=== PATIENT | female | born 1950 | race Caucasian/White ===

== ENCOUNTER 2016-09-25 08:17 | Observation (INO) | payer MEDICARE, OTHER ==
[2016-09-25] VITALS (9 sets, daily range): BP systolic 99–145; BP diastolic 56–76; PULSE 60–83; RESP 16–17; O2SAT 98–100
[~2016-09-25] VITALS: Ht 167.6 cm; Wt 90.9 kg
--- NOTE | 2016-09-25 08:35 | ED.REPORT ---
HPI-General Illness Date of Service Sep 25, 2016 ED Provider: Dr. Iniguez Pt is a 66 year old female with a hx of chronic neck pain, asthma, and HTN presenting to the ED via EMS after a syncopal episode lasting 10 seconds. She remembers feeling "clammy", lightheaded, and diaphoretic. Denies chest pressure or pain, fever, wheezing, nausea, vomiting, numbness, headache, diarrhea, incontinence, slurred speech, speech changes, vision changes, or focal weakness. She denies noting any inciting incidents that would have caused the episode, did not hit her head. She says that she was around friends and family and that she came back to after about 10 seconds of being slumped over. She did not have any associated tongue biting or clonic movements. Has not had a episode like this in the past. No other complaints at this time. Nursing Notes Stated Complaint: SYNCOPE Chief Complaint: General Complaint Nursing Notes Reviewed: Yes Allergies: Coded Allergies: codeine (Verified Allergy, Severe, Anaphylaxis, 09/25/16) Scheduled Cephalexin (Cephalexin) 500 Mg Capsule 1 CAPSULE PO QID Fluticasone/Salmeterol (Advair 500-50 Diskus) 1 Each Disk.w.dev 1 PUFF INHALATION DAILY Lisinopril (Lisinopril) 10 Mg Tablet 1 TAB PO BID Tramadol (Tramadol) 50 Mg Tablet 1 TAB PO QID Scheduled PRN ([calms forte]) 2 TAB PO HS PRN PRN Insomnia ([nerve tonic]) 1 PO BID PRN PRN For Anxiety or Agitation Acetaminophen (Tylenol Arthritis) 650 Mg Tablet.er 650 MG PO Q6 PRN PRN For Pain Albuterol HFA (Proair HFA) 8.5 Gm Hfa.aer.ad 2 PUFFS INHALATION Q4H PRN PRN For Shortness of Breath Ibuprofen (Ibuprofen) 200 Mg Capsule 200 MG PO QID PRN PRN For Pain General Time Seen by MD: 08:35 Chief Complaint Other (Syncope) Hx Obtained From: Patient, EMS Arrived By: Ambulance Sudden in Onset?: Yes Onset Occurred: Just prior to arrival Symptom Duration: 1 - 15 minutes Location: : Abdomen: Neck Quality: Painful Severity: Current: No pain currently Severity: Maximum: Moderate Recent Healthcare: No recent doctor visit, No recent hospitalization Similar Sx Previous: No Past Medical History Past Medical History Chronic neck pain HTN Asthma Past Surgical History Reports: Cholecystectomy Family History Father and mother both had HTN. Father had heart attack around 60 Smoking History Never Smoker Social History Alcohol Use: Denies alcohol use Drug Use: Denies drug use Ambulatory Status Independent Review of Systems Full Review of Systems Constitutional: Denies: Fever Eyes: Denies: Blurred bilateral Ears / Nose / Throat: Denies: Earache bilateral Respiratory: Denies: Shortness of breath, Wheezing Cardiovascular: Reports: Syncope, Denies: Chest pain GI: Denies: Abdominal pain, Diarrhea, Nausea, Vomiting Female: Denies: Incontinence Musculoskeletal: Denies: Back pain Hematologic: Denies Bruising Endocrine: Denies: Polyuria Skin: Reports Diaphoresis Neurologic: Reports: Lightheaded, Syncope, Denies: Focal weakness, Headache, Numbness, Slurred speech, Unable to speak, Vision change Complete sys rev & neg: except as marked. Physical Exam Nursing note and vitals reviewed. Constitutional: Well-developed, well-nourished. Not diaphoretic. Head: Normocephalic and atraumatic. Mouth/Throat: Oropharynx is clear and moist. No oropharyngeal exudate. Eyes: EOM are normal. Pupils are equal, round, and reactive to light. Neck: Supple, no tracheal deviation. Cardiovascular: Normal rate, regular rhythm. Equal and intact distal pulses throughout. Pulmonary/Chest: Effort normal and breath sounds normal. No respiratory distress. Abdominal: Soft. No distension. There is no tenderness, rebound, or guarding. Bowel sounds present. Musculoskeletal: Range of motion grossly intact, moving all extremities. No edema or tenderness appreciated. Mild paraspinal cervical tenderness to palpation. No bony tenderness. Neurological: AOx3. Grossly nonfocal exam. Strength and sensation intact and equal to bilateral upper and lower extremities. Normal finger to nose testing. Skin: Warm and dry, no rashes or pallor appreciated. Psychiatric: Appropriate mood and affect. Behavior appears normal. Vital Signs Vital Signs Date Time Temp Pulse Resp B/P Pulse Ox O2 Delivery O2 Flow Rate FiO2 09/25/16 10:23 83 16 111/64 98 Room Air 09/25/16 08:28 36.0 61 17 100/56 100 Room Air Initial VS: Reviewed Interpretation & Diagnostics Lab Results Interpretation Result Diagram: 09/25/16 0830 09/25/16 0830 Test 09/25/16 08:30 White Blood Count 7.2th/mm3 (3.8-10.1) Red Blood Count 3.69mil/mm3 (3.90-5.20) Hemoglobin 11.9g/dL (12.0-15.6) Hematocrit 35.0% (35.0-46.0) Mean Corpuscular Volume 94.9fL (81-100) Mean Corpuscular Hemoglobin 32.2pg (27.0-35.0) Mean Corpuscular Hemoglobin Concent 34.0% (32.0-37.0) Red Cell Distribution Width 12.7% (12.3-15.4) Platelet Count 316bil/L (150-400) Neutrophils (%) (Auto) 51.9% (40-74) Lymphocytes (%) (Auto) 32.6% (14-46) Monocytes (%) (Auto) 12.8% (4-12) Eosinophils (%) (Auto) 2.2% (0-5) Basophils (%) (Auto) 0.4% (0-3) Sodium Level 134mEq/L (134-144) Potassium Level 4.2mEq/L (3.5-5.2) Chloride Level 98mEq/L (97-108) Carbon Dioxide Level 21mmol/L (18-29) Blood Urea Nitrogen 15mg/dL (8-27) Creatinine 0.85mg/dL (0.57-1.00) Estimat Glomerular Filtration Rate 95mL/min (>59) Glucose Level 105mg/dL (60-99) Calcium Level 9.3mg/dL (8.5-10.1) Magnesium Level 2.0mg/dL (1.6-2.6) Total Bilirubin 0.7mg/dL (0.0-1.2) Aspartate Amino Transf (AST/SGOT) 48U/L (0-50) Alanine Aminotransferase (ALT/SGPT) 42U/L (0-32) Alkaline Phosphatase 171U/L (25-165) Total Protein 7.2g/dL (6.4-8.4) Albumin 3.5g/dL (3.4-5.0) ECG Interpretation ECG Interpretation: ST elevation is limited to IA and AVL with IA depression on mild ST elevation in 1,2,AVL small amount of IA depression in v2. No other significant ST changes appreciated. Rate of 59. Time: 08:29 Interpreted by: ED physician ECG Interpretation: No significant change from previous. Time: 11:11 Interpreted by: ED physician Normal ECG Interpretation: Normal rate (67) X-Ray Chest Interpretation Chest Xray Interpretation: IMPRESSION: Normal for age. Dictated by: Elkin Lewis M.D. on 09/25/2016 at 9:21 View: Portable, 1 view Interpretation / Wet Read by: Interpret - Radiologist CT Head Interpretation IMPRESSION: Normal for age, source of syncope is not seen. No trauma found. Dictated by: Elkin Lewis M.D. on 09/25/2016 at 10:01 Study: Head CT no contrast Interpretation / Wet Read by: Interpret - Radiologist CT C-Spine Interpretation IMPRESSION: Moderately severe mid and lower cervical degenerative disc disease, but without acute trauma found. Depending on the clinical status followup by MR scanning for more accurate assessment of degree of spinal and foraminal stenosis may be warranted. Dictated by: Elkin Lewis M.D. on 09/25/2016 at 10:01 Study type: CT no contrast Interpretation / Wet Read by: Interpret - Radiologist Re-Eval/Medical Decision Med Decision/Clinical Course In summary, 66-year-old female presenting to the ED for evaluation of a syncopal episode earlier today. Differential diagnosis is broad and includes vasovagal episode, orthostatic syncope/dehydration, metabolic abnormality, dysrhythmia, PE, ACS, etc. Upon arrival to the ED, patient is endorsing improvement in symptoms. Her initial EKG demonstrates some ST elevation in leads 1, 2, and aVL and a small amount of IA depression in lead 2; this is not seemed to correlate with an anatomic distribution - no recent fevers noted, no friction rub, no murmurs appreciated. I discussed the patient briefly with cardiology; appreciate their recommendations. CBC and CMP grossly within normal limits with the exception of a hemoglobin of 11.9. Troponin negative 2. Head CT and cervical spine CT showed no findings that would account for her current presentation. Chest x-ray negative. PE seems unlikely given no dyspnea , reassuring vital signs here in the ED, no hypoxia of note, nor pleuritic symptoms. Upon reassessment, patient became very lightheaded upon standing and tachycardic to the 140s. She felt better after sitting down. The rhythm strip demonstrated sinus tachycardia at this time with no other dysrhythmias noted. However, given that she is still having difficulty ambulating. Given this, plan admission for further management and evaluation of her syncope. Discussed with the patient and her family, who are agreeable to the plan as stated, no further questions. Discussed with the hospitalist; appreciate assistance. Time of Eval: 11:00 Patient Status: Condition improved Re-Evaluation/Progress Note: Pt failed road test. Time of Eval: 11:53 Patient Status: Condition improved Re-Evaluation/Progress Note: Discussed plan for admission. Pt understands and agrees with plan. All pt questions addressed. Consultation : Referral / Consult Name: Jared Yap MD Consulted With: Hospitalist Call Returned at: 12:34 [employer] Dehydrator Operator: Will see patient, Agrees with plan, Accepts admit Counseled Regarding: Diagnosis, Lab results, Need for admission Discharge & Departure Primary Impression: Syncope Syncope type: unspecified Qualified Code: R55 - Syncope and collapse Disposition: ADMITTED TO HOSPITAL Discharge Condition All VS Reviewed: Yes Condition: Stable Scribe Attestation Portions of this note were transcribed by Kaylan Ramirez. Dr. Geetha Renteria personally performed the history, physical exam and medical decision-making; I reviewed and confirmed the accuracy of the information in the transcribed note. Signed by: Bassam Ann, 09/25/2016. Kameron Iniguez MD Sep 25, 2016 08:35 KAYLAN RAMIREZ Sep 25, 2016 08:35 Discharge & Departure Primary Impression: Syncope Syncope type: unspecified Qualified Code: R55 - Syncope and collapse Disposition: ADMITTED TO HOSPITAL Discharge Condition All VS Reviewed: Yes Condition: Improved Scribe Attestation Portions of this note were transcribed by Kaylan Ramirez. Dr. Geetha Renteria personally performed the history, physical exam and medical decision-making; I reviewed and confirmed the accuracy of the information in the transcribed note. Signed by: Bassam Ann, 09/25/2016. Kameron Iniguez MD Sep 25, 2016 08:35 KAYLAN RAMIREZ Sep 25, 2016 08:35
[2016-09-25 08:42] LABS: BASOPHILS % (AUTO) 0.4 % (0-3); EOSINOPHILS % (AUTO) 2.2 % (0-5); MONOCYTES % (AUTO) 12.8 % (4-12); Mean Corpuscular Hemoglobin 32.2 pg (27.0-35.0); Mean Corpuscular Volume 94.9 fL (81-100); NEUTROPHILS % (AUTO) 51.9 % (40-74); Platelet Count 316 bil/L (150-400)
[2016-09-25 09:18] LABS: TROPONIN T 0.01 ug/L (0.0-0.011)
--- NOTE | 2016-09-25 09:23 | DRSVH ---
PROCEDURE: X-RAY CHEST ONE VIEW, PORTABLE ([id number]) INDICATIONS: LOW BP TECHNIQUE: One view of the chest was acquired. COMPARISON: None. FINDINGS: Surgical changes and devices: None. Lungs and pleura: No pleural effusions or pneumothorax. Lungs are clear. Mediastinum: Mediastinal contours appear normal. Heart size is normal. Bones and chest wall: No suspicious bony lesions. Overlying soft tissues appear unremarkable. IMPRESSION: Normal for age. Dictated by: Elkin Lewis M.D. on 09/25/2016 at 9:21 Approved by: Elkin Lewis M.D. on 09/25/2016 at 9:21
--- NOTE | 2016-09-25 10:03 | DRSVH ---
PROCEDURE: CT BRAIN WITHOUT CONTRAST ([id number]) INDICATIONS: syncope TECHNIQUE: Noncontrast 4.5 mm thick angled axial sections acquired from the foramen magnum to the vertex, with c oronal reformats. COMPARISON: None. FINDINGS: Image quality: Excellent. CSF spaces: Basal cisterns are patent. No extra-axial fluid collections. Ventricles are normal in size and shape. Brain: No midline shift. No intracranial masses or hemorrhage. Munguia-white matter interface is norm al. Skull and face: Calvarium and visualized facial bones are intact, without suspicious lesions. Sinuses: Visualized sinuses and mastoids are clear. IMPRESSION: Normal for age, source of syncope is not seen. No trauma found. Dictated by: Elkin Lewis M.D. on 09/25/2016 at 10:01 Approved by: Elkin Lewis M.D. on 09/25/2016 at 10:01
--- NOTE | 2016-09-25 10:04 | DRSVH ---
PROCEDURE: CT CERVICAL SPINE WITHOUT CONTRAST ([id number]) INDICATIONS: syncope TECHNIQUE: Noncontrast 3 mm thick sections acquired from the skull base to the T4 level. Sagittal and coronal r eformats were then constructed. For radiation dose reduction, the following was used: automated exp osure control, adjustment of mA and/or kV according to patient size. COMPARISON: None. FINDINGS: Image quality: Excellent. Bones: No fractures or dislocations. Visualized superior ribs are intact. There is moderately huyen re degenerative disc disease from C3-4 through C6-7. Soft tissues: Prevertebral soft tissues are normal in thickness. No paravertebral hematomas. No ap ical pneumothoraces. IMPRESSION: Moderately severe mid and lower cervical degenerative disc disease, but without acute tra rosy found. Depending on the clinical status followup by MR scanning for more accurate assessment of degree of spinal and foraminal stenosis may be warranted. Dictated by: Elkin Lewis M.D. on 09/25/2016 at 10:01 Approved by: Elkin Lewis M.D. on 09/25/2016 at 10:03
[2016-09-25] MEDS ORDERED: ACET-2766 PO (12:10)
[2016-09-25] MEDS ORDERED: LISI10TA PO (12:10)
[2016-09-25] MEDS ORDERED: FLUT1DIS5 INHALATION (12:10)
[2016-09-25] MEDS ORDERED: NERVE TONIC PO (12:10)
[2016-09-25] MEDS ORDERED: CEPH500C PO (12:10)
[2016-09-25] MEDS ORDERED: IBUP200C PO (12:10)
[2016-09-25] MEDS ORDERED: TRAM50TA2 PO (12:10)
[2016-09-25] MEDS ORDERED: calms forte PO (12:10)
[2016-09-25] MEDS ORDERED: ALBU8.5H2 INHALATION (12:12)
[2016-09-25] MEDS ORDERED: Alum-Mag Hydrox-Simeth 30 mL Suspension PO PRN (13:25)
[2016-09-25] MEDS ORDERED: Ondansetron 2 mg/mL 2 mL Inj IVPUSH PRN (13:25)
[2016-09-25] MEDS ORDERED: Polyethylene Glycol (PEG) 17 Gm Powder PO PRN (13:25)
[2016-09-25 14:23] LABS: APPEARANCE,URINE CLEAR (CLEAR,HAZY); COLOR,URINE STRAW (YELLOW)
[2016-09-25 14:24] LABS: OCCULT BLOOD,URINE NEGATIVE (NEGATIVE); UROBILINOGEN,URINE NORMAL (NORMAL)
[2016-09-25] MEDS ORDERED: Albuterol HFA 60 Puff 8 Gm Inhaler INHALATION PRN (14:30)
--- NOTE | 2016-09-25 14:38 | PCM.HPMED ---
Subjective Date of Service Sep 25, 2016 Primary Provider: Admitting Physician: Jared Yap MD Primary Care Physician: Verenice Attending Physician: Jared Yap MD Admit Status: From the Emergency Department, Admit to [facility] Team Chief Complaint: Syncope History of Present Illness: Pt is a 66 year old female with a hx of Chronic neck pain due to Cervical degenerative disease, HTN, Asthma resulting via EMS after a witnessed syncopal episode lasting approximately 10 seconds. Patient was sitting in chair and daughter says she then slumped forward. Patient regained consciousness 10 seconds later and asked what happened. Per daughter no loss of bladder function , no seizure-like activity, no tongue biting. Patient was recently diagnosed with a odontoid infection and has been on cephalexin that was prescribed by her dentist. Patient does report having decreased by mouth intake due to pain with eating and swallowing. Denies any fever or chills. Patient does not have any have a history of syncope or any cardiac events. She did get a echocardiogram in the past due to an asthma exacerbation. Family says the echocardiogram report was normal and will try to obtain results. Patient denies any chest pain. Denies any shortness of breath. No new medications other than the antibiotic. Patient does take lisinopril and took this morning. Denies chest pressure or pain, fever, wheezing, nausea, vomiting, numbness, headache, diarrhea, incontinence, slurred speech, speech changes, vision changes , or focal weakness. In the ED patient was initially given fluids. Patient still felt lightheaded upon standing and was unsteady on feet decision was made to admit the patient. Per ED note- EKG showed ST elevation is limited to CT and AVL with CT depression on mild ST elevation in 1,2,AVL small amount of CT depression in v2. No other significant ST changes appreciated. Most consistent with benign early repolarization. Repeat EKG is unchanged from previous. Review of Systems: 12 point ROS negative except that in HPI. Allergies Coded Allergies: codeine (Verified Allergy, Severe, Anaphylaxis, 09/25/16) Home Medications Scheduled Cephalexin (Cephalexin) 500 Mg Capsule 1 CAPSULE PO QID Fluticasone/Salmeterol (Advair 500-50 Diskus) 1 Each Disk.w.dev 1 PUFF INHALATION DAILY Lisinopril (Lisinopril) 10 Mg Tablet 1 TAB PO BID Tramadol (Tramadol) 50 Mg Tablet 1 TAB PO QID Scheduled PRN ([calms forte]) 2 TAB PO HS PRN PRN Insomnia ([nerve tonic]) 1 PO BID PRN PRN For Anxiety or Agitation Acetaminophen (Tylenol Arthritis) 650 Mg Tablet.er 650 MG PO Q6 PRN PRN For Pain Albuterol HFA (Proair HFA) 8.5 Gm Hfa.aer.ad 2 PUFFS INHALATION Q4H PRN PRN For Shortness of Breath Ibuprofen (Ibuprofen) 200 Mg Capsule 200 MG PO QID PRN PRN For Pain PMH Chronic neck reji due to Cervical degenerative disease, HTN, Asthma Surgical History Cholecystectomy Family History Father and mother both had HTN. Father had heart attack around 60 Social History Hx Alcohol Use: No Hx Substance Use: No Smoking Status: Never Smoker Living Arrangement: with Family Exam Vital Signs Vital Sign - Last Date Time Temp Pulse Resp B/P Pulse Ox O2 Delivery O2 Flow Rate FiO2 09/25/16 13:40 72 09/25/16 13:14 36.8 16 130/76 99 09/25/16 10:23 Room Air Exam Gen: NAD, AOx4, HEENT: NCAT, PERRLA, EOMI, sclera anicteric. R Facial Swelling. No exudate seen. Neck: Soft, supple, no thyromegaly/JVD/LAD. Resp: CTAB, no R/R/W. CV: S1 S2, RRR, No M/R/G Abd: Soft, (+) BS, NT/ND, no guarding/rebound/organomegaly. Ext: +PP, No edema. Skin: warm/dry/intact Neuro/Psych: Cooperative, appr mood/affect. CN II-XII grossly intact. No focal deficits. Lab and Diagnostics Result Diagram: 09/25/16 0830 09/25/16 0830 X-Rays, CTs and MRIs Chest Xray Interpretation: IMPRESSION: Normal for age. Dictated by: Elkin Lewis M.D. on 09/25/2016 at 9:21 View: Portable, 1 view Interpretation / Wet Read by: Interpret - Radiologist CT Head Interpretation IMPRESSION: Normal for age, source of syncope is not seen. No trauma found. Dictated by: Elkin Lewis M.D. on 09/25/2016 at 10:01 Study: Head CT no contrast Interpretation / Wet Read by: Interpret - Radiologist CT C-Spine Interpretation IMPRESSION: Moderately severe mid and lower cervical degenerative disc disease, but without acute trauma found. Depending on the clinical status followup by MR scanning for more accurate assessment of degree of spinal and foraminal stenosis may be warranted. Dictated by: Elkin Lewis M.D. on 09/25/2016 at 10:01 Study type: CT no contrast Interpretation / Wet Read by: Interpret - Radiologist 12-lead ECG ECG Interpretation: ST elevation is limited to CT and AVL with CT depression on mild ST elevation in 1,2,AVL small amount of CT depression in v2. No other significant ST changes appreciated. Rate of 59. Time: 08:29 Interpreted by: ED physician ECG Interpretation: No significant change from previous. Time: 11:11 Interpreted by: ED physician Normal ECG Interpretation: Normal rate (67) Assessment & Plan Pt is a 66 year old female with a hx of Chronic neck pain due to Cervical degenerative disease, HTN, Asthma resulting via EMS after a witnessed syncopal episode lasting approximately 10 seconds. Syncope- poa, active- Unclear etiology. Likely Orthostatic due to decreased PO intake. 2L IVF in ED. Pt was tachycardic with standing in ED, no official Orthostatic Vitals signs. CT Head- neg for acute abn. No known cardiac or carotid disease. Pt does have current Periodontal Infection which does not appear to be systemic. No other evidence of infection. CXR- no abn. UA- neg. - Pt had recent Echo at [facility] in [place], [place]. Per family those results were normal. - Repeat Ortho VS - Continue w/ IVF 100 cc NS. - Hold Lisinopril - Cardiac Diet. - Tele Monitoring. Periodontal Infection- poa, active. Not septic. Afebrile, no leukocytosis. Will continue with outpatient Cephalixin started by Dentist. Transaminitis- poa, active- likely 2/2 to dehydration. Hx of CCK. Will repeat in AM. Consider Hepatitis panel. No abd pain. - Repeat Liver Function in AM. HTN- chronic, active. - hold med Lisinopril until BP improved. Abnormal EKG- poa, active. EKG- ST elevation is limited to CT and AVL with CT depression on mild ST elevation in 1,2,AVL small amount of CT depression in v2. No other significant ST changes appreciated. Rate of 59. Repeat EKG- was same as prior. reviewed EKG, no evidence of STEMI or ischemia. Pt does not have chest pain. - Trop neg x2. - Repeat EKG in AM. Asthma- chronic, stable. Chronic neck pain due to Cervical degenerative disease- - chronic, stable - c/w hm med Tylenol. Code- Full Status- Patient is admitted under observation status expected length of stay less than 2 midnights due to severity of presenting symptoms, risk of adverse events, and complexity of treatment plan. Pain Evaluation: Adequate Pain Control GI Prophylaxis: Not indicated VTE Prophylaxis: Sub-Q Enoxaparin VTE Mechanical Devices: Intermittant Pneumatic CD Resuscitation Status: CPR: Attempt Resuscitation Time spent >60 minutes Jared Yap MD Sep 25, 2016 14:38
[2016-09-25] MEDS ORDERED: Albuterol 2.5 mg/3 mL Inhalation Solution NEB PRN (14:40)
[2016-09-25] MEDS: 0.9% Sodium Chloride 1,000 ML IV SCH (15:00)
--- NOTE | 2016-09-25 15:39 | NUR ---
Arrived 1204 - Received report from River Stout RN in the ED. The patient had not received admission orders yet and so was kept in the ED until the orders were placed. 1300 - She arrived from the ED to [facility] having had a Syncopal episode of unknown cause earlier in the day. She was settled into the room, shown how to use the call light, and telemetry placed (SR 60s per [employer] Tank Tender). She was instructed to call staff when she needs to get up for stand by assistance due to her dizziness. She was complaining of feeling weak and having a slight headache (04/16). 1401 - Adarsh paged Dr. Yap about her arrival and that both the patient and her family had some questions and concerns they wanted to address. He came to see her and speak with them. Care continues.
--- NOTE | 2016-09-25 17:21 | NUR ---
MIGUELITO explained to pt and her daughter who is at bedside. MIGUELITO signed. Copy of MIGUELITO and Medicare self administered medication information given to pt.
[2016-09-26] VITALS (7 sets, daily range): BP systolic 129–152; BP diastolic 73–81; PULSE 65–81; RESP 16–18; O2SAT 95–99
[2016-09-26] MEDS: 0.9% Sodium Chloride 1,000 ML IV SCH ×2 (02:17→10:19)
[2016-09-26 07:23] LABS: BASOPHILS % (AUTO) 0.2 % (0-3); EOSINOPHILS % (AUTO) 1.1 % (0-5); MONOCYTES % (AUTO) 9.4 % (4-12); Mean Corpuscular Hemoglobin 31.9 pg (27.0-35.0); Mean Corpuscular Volume 95.5 fL (81-100); NEUTROPHILS % (AUTO) 58.4 % (40-74); Platelet Count 253 bil/L (150-400)
[2016-09-26] MEDS ORDERED: Fluticasone-Salmeterol 500-50 Inhaler INHALATION SCH (08:30)
--- NOTE | 2016-09-26 09:18 | NUR ---
Evaluation completed. Please go to "Notes" then click on "Assessments and Notes" (bottom left corner of screen). Then select appropriate discipline tab on top of screen.
--- NOTE | 2016-09-26 11:37 | PCM.DC.MED ---
Discharge Summary Date of Service Sep 26, 2016 Dates of Hospitalization Date of Hospital Admission Sep 25, 2016 at 11:45 Date of Discharge: Sep 26, 2016 Providers: Admitting Physician: Jared Yap MD Primary Care Physician: Verenice Attending Physician: Jared Yap MD Diagnosis at Time of Discharge Diagnosis at Time of Discharge Syncope- poa, resolved Periodontal Infection- poa, active. Transaminitis- poa, improving- l HTN- chronic, active. Abnormal EKG- poa, active. Asthma- chronic, stable. Chronic neck pain due to Cervical degenerative disease- - chronic, stable Procedures XRay, CTs & MRIs Chest Xray Interpretation: IMPRESSION: Normal for age. Dictated by: Elkin Lewis M.D. on 09/25/2016 at 9:21 View: Portable, 1 view Interpretation / Wet Read by: Interpret - Radiologist CT Head Interpretation IMPRESSION: Normal for age, source of syncope is not seen. No trauma found. Dictated by: Elkin Lewis M.D. on 09/25/2016 at 10:01 Study: Head CT no contrast Interpretation / Wet Read by: Interpret - Radiologist CT C-Spine Interpretation IMPRESSION: Moderately severe mid and lower cervical degenerative disc disease, but without acute trauma found. Depending on the clinical status followup by MR scanning for more accurate assessment of degree of spinal and foraminal stenosis may be warranted. Dictated by: Elkin Lewis M.D. on 09/25/2016 at 10:01 Study type: CT no contrast Interpretation / Wet Read by: Interpret - Radiologist ECG 12 Lead ECG Interpretation: ST elevation is limited to MN and AVL with MN depression on mild ST elevation in 1,2,AVL small amount of MN depression in v2. No other significant ST changes appreciated. Rate of 59. Time: 08:29 Interpreted by: ED physician ECG Interpretation: No significant change from previous. Time: 11:11 Interpreted by: ED physician Normal ECG Interpretation: Normal rate (67) Brief History Pt is a 66 year old female with a hx of Chronic neck pain due to Cervical degenerative disease, HTN, Asthma resulting via EMS after a witnessed syncopal episode lasting approximately 10 seconds. Patient was sitting in chair and daughter says she then slumped forward. Patient regained consciousness 10 seconds later and asked what happened. Per daughter no loss of bladder function , no seizure-like activity, no tongue biting. Patient was recently diagnosed with a odontoid infection and has been on cephalexin that was prescribed by her dentist. Patient does report having decreased by mouth intake due to pain with eating and swallowing. Denies any fever or chills. Patient does not have any have a history of syncope or any cardiac events. She did get a echocardiogram in the past due to an asthma exacerbation. Family says the echocardiogram report was normal and will try to obtain results. Patient denies any chest pain. Denies any shortness of breath. No new medications other than the antibiotic. Patient does take lisinopril and took this morning. Denies chest pressure or pain, fever, wheezing, nausea, vomiting, numbness, headache, diarrhea, incontinence, slurred speech, speech changes, vision changes , or focal weakness. In the ED patient was initially given fluids. Patient still felt lightheaded upon standing and was unsteady on feet decision was made to admit the patient. Per ED note- EKG showed ST elevation is limited to MN and AVL with MN depression on mild ST elevation in 1,2,AVL small amount of MN depression in v2. No other significant ST changes appreciated. Most consistent with benign early repolarization. Repeat EKG is unchanged from previous. Hospital Course Pt is a 66 year old female with a hx of Chronic neck pain due to Cervical degenerative disease, HTN, Asthma resulting via EMS after a witnessed syncopal episode lasting approximately 10 seconds. Pt had tachycardia with standing in ED. S/P IVF Fluid Resuscitation and clinical resolution of syncope with standing. Syncope- poa, resolved Unclear etiology. Likely Orthostatic due to decreased PO intake. Resolved s/p IVF. CVA ruled out. Pt was tachycardic with standing in ED, no official Orthostatic Vitals signs. CT Head- neg for acute abn. No known cardiac or carotid disease. Pt does have current Periodontal Infection which does not appear to be systemic. No other evidence of infection. CXR- no abn. UA- neg. - Pt had recent Echo at [facility] in [place], [place]. Per family those results were normal. - Continue w/ IVF 100 cc NS. - Hold Lisinopril, can resume upon discharge. - Cardiac Diet. - Tele Monitoring- no events. Periodontal Infection- poa, active. Not septic. Afebrile, no leukocytosis. Will continue with outpatient Cephalixin started by Dentist. Transaminitis- poa, improving- likely 2/2 to dehydration. Hx of CCK. Will repeat in AM. Consider Hepatitis panel. No abd pain. - Repeat Liver Function in AM. HTN- chronic, active. - hold hm med Lisinopril until BP improved. Abnormal EKG- poa, active. EKG- ST elevation is limited to MN and AVL with MN depression on mild ST elevation in 1,2,AVL small amount of MN depression in v2. No other significant ST changes appreciated. Rate of 59. Repeat EKG- was same as prior. reviewed EKG, no evidence of STEMI or ischemia. Pt does not have chest pain, ACS ruled out. - Trop neg x3. - Repeat EKG as outpatient. Asthma- chronic, stable. Chronic neck pain due to Cervical degenerative disease- - chronic, stable - c/w hm med Tylenol. Code- Full Dispo- - Can continue antibiotic per dentist recommendations. Follow up with your dentist next week - Can resume home dose of lisinopril on 09/27, if blood pressure is less than 120 /80 with recommend not taking. - medication tramadol to be used with caution as can also cause lightheadedness which may have contributed to your symptoms. - Encouraged to maintain adequate fluid intake. - Follow-up with your primary doctor next week. Recommended labs include hepatic function panel and orthostatic vital signs. Recommend repeat EKG. Exam Vital Signs (Last) Date Time Temp Pulse Resp B/P Pulse Ox O2 Delivery O2 Flow Rate FiO2 09/26/16 10:16 68 09/26/16 08:46 36.8 17 131/81 97 Room Air Test 09/25/16 08:30 09/25/16 14:01 09/25/16 16:47 09/26/16 06:35 Magnesium Level 2.0mg/dL (1.6-2.6) Urine Color Straw (YELLOW) Urine Appearance Clear (CLEAR,HAZY) Urine pH 6.0 (5.0-8.0) Urine Specific [place] 1.010 (1.003-1.035) Urine Protein Negativemg/dL (NEG,TRACE) Urine Glucose (UA) Negativemg/dL (NEGATIVE) Urine Ketones Negativemg/dL (NEGATIVE) Urine Occult Blood Negative (NEGATIVE) Urine Nitrite Negative (NEGATIVE) Urine Bilirubin Negative (NEGATIVE) Urine Urobilinogen Normalmg/dL (NORMAL) Urine Leukocyte Esterase Negative (NEGATIVE) Urine RBC 0-2/hpf (0-2) Urine WBC 0-5/hpf (0-5) Urine Epithelial Cells Few/hpf (NONE-MOD) Urine Crystals None seen (NONE SEEN) Urine Bacteria Few/hpf (NONE-FEW) Urine Hyaline Casts None/lpf (NONE) Urine Granular Casts None seen (NONE SEEN) Urine Waxy Casts None seen (NONE SEEN) Urine Red Blood Cell Casts None seen (NONE SEEN) Urine White Blood Cell Casts None seen (NONE SEEN) Urine Mucus None seen (None Seen) Urine Trichomonas None seen (NONE SEEN) Urine Yeast None (NONE SEEN) Urinalysis Comment None Urine Culture Reflexed Not indicated Troponin T < 0.010ug/L (0.0-0.011) White Blood Count 4.4th/mm3 (3.8-10.1) Red Blood Count 3.57mil/mm3 (3.90-5.20) Hemoglobin 11.4g/dL (12.0-15.6) Hematocrit 34.1% (35.0-46.0) Mean Corpuscular Volume 95.5fL (81-100) Mean Corpuscular Hemoglobin 31.9pg (27.0-35.0) Mean Corpuscular Hemoglobin Concent 33.4% (32.0-37.0) Red Cell Distribution Width 12.9% (12.3-15.4) Platelet Count 253bil/L (150-400) Neutrophils (%) (Auto) 58.4% (40-74) Lymphocytes (%) (Auto) 30.7% (14-46) Monocytes (%) (Auto) 9.4% (4-12) Eosinophils (%) (Auto) 1.1% (0-5) Basophils (%) (Auto) 0.2% (0-3) Sodium Level 140mEq/L (134-144) Potassium Level 4.5mEq/L (3.5-5.2) Chloride Level 108mEq/L (97-108) Carbon Dioxide Level 21mmol/L (18-29) Blood Urea Nitrogen 12mg/dL (8-27) Creatinine 0.69mg/dL (0.57-1.00) Estimat Glomerular Filtration Rate 121mL/min (>59) Glucose Level 101mg/dL (60-99) Calcium Level 8.7mg/dL (8.5-10.1) Total Bilirubin 0.2mg/dL (0.0-1.2) Aspartate Amino Transf (AST/SGOT) 36U/L (0-50) Alanine Aminotransferase (ALT/SGPT) 40U/L (0-32) Alkaline Phosphatase 162U/L (25-165) Total Protein 6.4g/dL (6.4-8.4) Albumin 3.4g/dL (3.4-5.0) Discharge Medications Discharge Medications Cephalexin (Cephalexin) 500 Mg Capsule 1 CAPSULE PO QID (Reported) Fluticasone/Salmeterol (Advair 500-50 Diskus) 1 Each Disk.w.dev 1 PUFF INHALATION DAILY (Reported) Lisinopril (Lisinopril) 10 Mg Tablet 1 TAB PO BID (Reported) Tramadol (Tramadol) 50 Mg Tablet 1 TAB PO QID (Reported) As needed ([calms forte]) 2 TAB PO HS PRN PRN Insomnia (Reported) ([nerve tonic]) 1 PO BID PRN PRN For Anxiety or Agitation (Reported) Acetaminophen (Tylenol Arthritis) 650 Mg Tablet.er 650 MG PO Q6 PRN PRN For Pain (Reported) Albuterol HFA (Proair HFA) 8.5 Gm Hfa.aer.ad 2 PUFFS INHALATION Q4H PRN PRN For Shortness of Breath (Reported) Ibuprofen (Ibuprofen) 200 Mg Capsule 200 MG PO QID PRN PRN For Pain (Reported) Additional med instructions - Can continue antibiotic per dentist recommendations. Follow up with your dentist next week - Can resume home dose of lisinopril on 09/27, if blood pressure is less than 120 /80 with recommend not taking. - Pain medication tramadol to be used with caution as can also cause lightheadedness which may have contributed to your symptoms. Followup Plan Disposition: Home Follow-up plan - Follow-up with your primary doctor next week. Recommended labs include hepatic function panel and orthostatic vital signs. Recommend repeat EKG. Discharge Diet: Heart Healthy Discharge Activity: No restrictions Patient Instructions Encouraged to maintain adequate fluid intake. Time spent Greater than 30 minutes was spent in preparation of discharge with greater than 50% of that time dedicated to patient counseling and coordination of care. Jared Yap MD Sep 26, 2016 11:37
--- NOTE | 2016-09-26 11:42 | PCM.DIMED ---
Discharge Instructions Date of Service Sep 26, 2016 Dates of Hospitalization Sep 25, 2016 at 11:45 Discharge Diagnosis Discharge Diagnosis Syncope- poa, resolved Periodontal Infection- poa, active. Transaminitis- poa, improving- l HTN- chronic, active. Abnormal EKG- poa, active. Asthma- chronic, stable. Chronic neck pain due to Cervical degenerative disease- - chronic, stable Medication Instructions Additional med instructions - Can continue antibiotic per dentist recommendations. Follow up with your dentist next week - Can resume home dose of lisinopril on 09/27, if blood pressure is less than 120 /80 with recommend not taking. - Pain medication tramadol to be used with caution as can also cause lightheadedness which may have contributed to your symptoms. Test Results Test Results Interpretation / Wet Read by: Interpret - Radiologist ECG 12 Lead ECG Interpretation: ST elevation is limited to MT and AVL with MT depression on mild ST elevation in 1,2,AVL small amount of MT depression in v2. No other significant ST changes appreciated. Rate of 59. Time: 08:29 Interpreted by: ED physician ECG Interpretation: No significant change from previous. Time: 11:11 Interpreted by: ED physician Normal ECG Interpretation: Normal rate (67) Diet Discharge Diet: Heart Healthy Activity Discharge Activity: No restrictions Patient Instructions Patient Instructions Encouraged to maintain adequate fluid intake. Follow-up plan - Follow-up with your primary doctor next week. Recommended labs include hepatic function panel and orthostatic vital signs. Recommend repeat EKG. Jared Yap MD Sep 26, 2016 11:42
--- NOTE | 2016-09-26 14:20 | NUR ---
dietary server not present at time of patient's discharge. All paperwork given to patient, no new scripts given. Patient verbalized all understanding and denied any further questions. IV site discontinued, intact.
--- NOTE | 2016-09-26 14:26 | NUR ---
Social Work: Discharge Data: EMR reviewed. Patient is on day 1 of hospitalization for syncope per H&P. Patient was discussed in morning rounds. Patient has been deemed medically stable for discharge per MD. During rounds, no information was presented regarding patient's incapacity to discharge home and complete ADLs. Transportation will be provided by family. Patient has no additional needs at this time. Assessment: Patient will discharge home. Plan: Patient to discharge home today. Transportation will be provided by family. Patient has no additional needs at this time. JAYCE Arambula
== END 2016-09-26 14:20 | disposition home or self-care (01) ==
LOC: EDBD 08:17 → SED 08:17 → MPC 11:45
PROVIDERS: ADMIT Internal Medicine; ATTEND Internal Medicine
DX: R55 Syncope and collapse (principal); I10 Essential (primary) hypertension; J45.998 Other asthma; M50.321 Other cervical disc degeneration at C4-C5 level; G89.29 Other chronic pain; K05.219 Aggressive periodontitis, localized, unspecified severity; R94.31 Abnormal electrocardiogram [ECG] [EKG]; R74.0 Nonspecific elevation of levels of transaminase and lactic acid dehydrogenase [LDH]
CPT/HCPCS: 36415; 70450; 71010; 72125; 80053; 81000; 82948; 83735; 84484; 85025; 93005; 94664; 96360; 96361; 96372; 97161; 99285; G0378; G8978; G8979; G8980; J1650; J7030